=== PATIENT | female | born 1985 | race Asian ===

== ENCOUNTER 2016-06-20 18:35 | Emergency (ER) | payer OTHER ==
[~2016-06-20] VITALS: Ht 162.6 cm; Wt 75.0 kg
[~2016-06-20 18:35] MED LIST: PANT20 PO; ZOFR4TAB3 SL
[2016-06-20 18:37] VITALS: BP 140/87; PULSE 97; RESP 12; TEMP 98.1; O2SAT 100
== END 2016-06-20 19:27 | disposition left against medical advice (07) ==
LOC: NED 18:35
DX: R10.9 Unspecified abdominal pain (principal)
CPT/HCPCS: 99281